=== PATIENT | male | born 1980 | race Caucasian/White ===

== ENCOUNTER 2022-12-09 03:24 | Emergency (ER) | payer SELFPAY ==
[~2022-12-09] VITALS: Ht 182.9 cm; Wt 99.3 kg
[2022-12-09 04:06] LABS: HEMATOCRIT 48.6 % (36.7-47.1); MEAN CORPUSCULAR HEMOGLOBIN 30.7 uug (23.8-33.4); MEAN CORPUSCULAR VOLUME 86.7 fL (73.0-96.2); PLATELET COUNT (AUTO) 324 K/uL (152-348)
[2022-12-09 04:22] LABS: CARBON DIOXIDE 30 mmol/L (21-32); CHLORIDE 97 mmol/L (98-107); CREATININE 0.9 mg/dL (0.6-1.3); GLUCOSE 132 mg/dL (74-106); POTASSIUM 3.3 mmol/L (3.5-5.1); UREA NITROGEN, BLOOD 17 mg/dL (7-18)
[2022-12-09 04:30] LABS: ALANINE AMINOTRANSFERASE 95 U/L (16-63); ALKALINE PHOSPHATASE 98 U/L (50-136); ASPARTATE AMINOTRANSFERASE 110 U/L (15-37); BILIRUBIN,DIRECT 0.2 mg/dL (0.0-0.2); BILIRUBIN,TOTAL 0.8 mg/dL (0.2-1.0); TOTAL PROTEIN, SERUM 8.8 g/dL (6.4-8.2)
--- NOTE | 2022-12-09 07:20 | NUR ---
JOSE LUISAR to Citlalli MOORE
--- NOTE | 2022-12-09 07:22 | NUR ---
Recieved pt in bed, resting w/ both eyea closed, NAD noted at this time.
--- NOTE | 2022-12-09 08:40 | NUR ---
Ben Arana, TROY speaking to pt. Follow up info provided by TROY.
--- NOTE | 2022-12-09 09:00 | NUR ---
Brakfast tray provided, ate w/ great appettite.
--- NOTE | 2022-12-09 09:20 | NUR ---
Social Work consult was requested for a patient in the emergency room for substance abuse resources. Patient is a 42-year-old male. Patient is alert and oriented X4. Patient presents with anxious mood and congruent affect. Patient states his primary contact is his sister, Allegra Smith ([phone]) and she lives in [place]. Patient states he has a history of opioid abuse and there is no toxicology report. Patient states he was staying at [facility] for a couple days but requested resources for another treatment center. TROY provided the patient with medication assisted treatment resources for [place] [address] ([phone]), [address] [address] ([phone]), and [address] [address] ([phone]). Patient appears motivated for treatment and states he is open to [address] [address] ([phone]). Patient requested new shoes and clothes and TROY provided shoes and clothes. Patient states he has a history of bipolar disorder and was taking medication. TROY provided the patient with the mental health resource for [facility] [address] [place] [address] ([phone]). Patient denies suicidal or homicidal ideation. Patient states his plan for discharge is to go to [facility] [address] [place] [address] [place] [address] ([phone]). TROY provided the patient with a TAP card and directions. TROY informed patients nurse, Citlalli and Dr. Larose.
[2022-12-09 09:55] VITALS: BP 117/70
--- NOTE | 2022-12-09 10:06 | NUR ---
Patient given written and verbal discharge instructions. Patient verbalizes understanding of instructions. Patient is ambulatory with steady gait. Refuses offer of fpc placement. Patient given list of available shelters in surrounding area. Pt walked out of ER w/ steady gait.
== END 2022-12-09 10:10 | disposition home or self-care (01) ==
LOC: ER 03:28
DX: F17.210 Nicotine dependence, cigarettes, uncomplicated (principal); Z82.49 Family history of ischemic heart disease and other diseases of the circulatory system; Z86.718 Personal history of other venous thrombosis and embolism; I44.0 Atrioventricular block, first degree; E87.6 Hypokalemia; R74.01 Elevation of levels of liver transaminase levels
CPT/HCPCS: 36415; 71045; 84484; 85025; 93005; A4663